=== PATIENT | female | born 1995 | race African-American/Black ===

== ENCOUNTER 2017-08-23 21:53 | Emergency (ER) | payer MEDICAID ==
[~2017-08-23] VITALS: Ht 162.6 cm; Wt 77.0 kg
[~2017-08-23 21:53] MED LIST: DEPO INJECTION; IBUPROFEN; TRAMADOL
[2017-08-23 23:38] LABS: CLARITY URINE CLOUDY (CLEAR); COLOR URINE RED (YELLOW); KETONES URINE NEGATIVE (NEGATIVE); LEUKOCYTE ESTERASE URINE 2+ (NEGATIVE); NITRITE URINE NEGATIVE (NEGATIVE); OCCULT BLOOD URINE 3+ (NEGATIVE); PROTEIN URINE 1+ (NEGATIVE); UROBILINOGEN URINE 0.2 E.U./dL (0.2-1.0)
[2017-08-24 00:25] LABS: BASOPHILS % 0.5 % (0.0-2.0); EOSINOPHILS % 6.1 % (0.0-5.0); HEMATOCRIT. 32.4 % (36.0-48.0); HEMOGLOBIN. 10.5 g/dL (12.0-16.0); LYMPHOCYTES % 18.1 % (20.0-50.0); MEAN CORPUSCULAR HEMOGLOBIN 25.1 pg (28.0-32.0); MEAN CORPUSCULAR VOLUME 77.4 fL (81.0-99.0); MEAN PLATELET VOLUME 9.7 fl (7.4-10.4); MONOCYTES % 6.6 % (2.0-8.0); NEUTROPHILS % 68.7 % (40.0-76.0); PLATELET 248 x1000/uL (130-400); RED BLOOD CELL COUNT 4.19 mill/uL (4.2-5.4); RED CELL DISTRIBUTION WIDTH 17.7 % (11.6-14.6)
[2017-08-24 00:32] LABS: CHLORIDE 108 mEq/L (98-107)
[2017-08-24 00:35] LABS: PROTHROMBIN TIME 10.3 sec (9.4-11.6)
[2017-08-24 00:57] LABS: B-HCG QUANTITATIVE 12694 mIU/mL (<3)
[2017-08-24] MEDS ORDERED: NITROFURANTOIN 100MG M/M CAPSULE PO SCH (01:43)
[2017-08-24] MEDS ORDERED: HYDROCODONE/ACETAMINOPHEN 10/325MG TABLET PO ONE (02:00)
[2017-08-24 02:21] VITALS: BP 109/57
== END 2017-08-24 02:11 | disposition home or self-care (01) ==
LOC: ER 21:53
DX: O03.88 Urinary tract infection following complete or unspecified spontaneous abortion (principal); Z3A.01 Less than 8 weeks gestation of pregnancy
CPT/HCPCS: 36415; 76830; 76856; 80053; 81003; 84702; 85025; 85610; 86850; 86900; 99285

== ENCOUNTER 2017-12-11 20:41 | Emergency (ER) | payer MEDICAID ==
[~2017-12-11] VITALS: Ht 154.9 cm; Wt 73.0 kg
[2017-12-11 20:49] VITALS: BP 108/58
== END 2017-12-11 21:45 | disposition home or self-care (01) ==
LOC: ER 20:41
DX: Z53.21 Procedure and treatment not carried out due to patient leaving prior to being seen by health care provider (principal)

== ENCOUNTER 2018-01-18 12:50 | Emergency (ER) | payer MEDICAID ==
[~2018-01-18] VITALS: Ht 162.6 cm; Wt 73.0 kg
[2018-01-18] MEDS ORDERED: PREDNISONE 20MG TABLET PO ONE (15:45)
[2018-01-18 16:21] VITALS: BP 104/67
== END 2018-01-18 16:21 | disposition home or self-care (01) ==
LOC: ER 12:50
DX: T78.40XA Allergy, unspecified, initial encounter (principal)
CPT/HCPCS: 81025; 99283; J7512

== ENCOUNTER 2018-04-23 08:41 | Emergency (ER) | payer MEDICAID ==
[~2018-04-23] VITALS: Ht 162.6 cm; Wt 74.0 kg
[2018-04-23] MEDS ORDERED: ACETAMINOPHEN 325MG TABLET PO ONE (10:45)
[2018-04-23 13:10] VITALS: BP 108/72
== END 2018-04-23 13:14 | disposition home or self-care (01) ==
LOC: ER 09:03
DX: S63.91XA Sprain of unspecified part of right wrist and hand, initial encounter (principal); X58.XXXA Exposure to other specified factors, initial encounter; Y93.89 Activity, other specified; Y92.89 Other specified places as the place of occurrence of the external cause
CPT/HCPCS: 73130; 81025; 99283

== ENCOUNTER 2018-12-08 07:42 | Emergency (ER) | payer MEDICAID ==
[~2018-12-08] VITALS: Ht 162.6 cm; Wt 73.0 kg
[2018-12-08] MEDS ORDERED: MAGNESIUM/ALUMINUM HYDROXIDE/SIMETHICONE 30ML UDC PO STA (08:14)
[2018-12-08] MEDS ORDERED: DICYCLOMINE 10 MG/5 ML ORAL SYR PO STA (08:14)
[2018-12-08] MEDS ORDERED: FAMOTIDINE 20MG TABLET PO ONE (08:15)
[2018-12-08 09:02] LABS: BASOPHILS % 0.4 % (0.0-2.0); EOSINOPHILS % 9.9 % (0.0-5.0); HEMATOCRIT. 28.8 % (36.0-48.0); HEMOGLOBIN. 8.9 g/dL (12.0-16.0); LYMPHOCYTES % 15.5 % (20.0-50.0); MEAN CORPUSCULAR HEMOGLOBIN 20.3 pg (28.0-32.0); MEAN CORPUSCULAR VOLUME 65.8 fL (81.0-99.0); MEAN PLATELET VOLUME 9.6 fl (7.4-10.4); MONOCYTES % 6.2 % (2.0-8.0); PLATELET 308 x1000/uL (130-400); RED BLOOD CELL COUNT 4.37 mill/uL (4.2-5.4)
[2018-12-08 09:07] LABS: CHLORIDE 107 mEq/L (98-107)
[2018-12-08 09:12] LABS: CLARITY URINE CLOUDY (CLEAR); COLOR URINE YELLOW (YELLOW); KETONES URINE NEGATIVE (NEGATIVE); LEUKOCYTE ESTERASE URINE NEGATIVE (NEGATIVE); NITRITE URINE NEGATIVE (NEGATIVE); OCCULT BLOOD URINE NEGATIVE (NEGATIVE); PH URINE 5.5 (4.5-8.0); PROTEIN URINE NEGATIVE (NEGATIVE); SPECIFIC GRAVITY URINE 1.028 (1.005-1.030); UROBILINOGEN URINE 0.2 E.U./dL (0.2-1.0)
[2018-12-08 09:38] LABS: PLATELET ESTIMATE NORMAL
[2018-12-08 09:50] LABS: *AMPHETAMINES SCREEN URINE NEGATIVE (NEGATIVE); *BARBITURATES SCREEN URINE NEGATIVE (NEGATIVE); *BENZODIAZEPINES SCREEN URINE NEGATIVE (NEGATIVE); *COCAINE SCREEN URINE NEGATIVE (NEGATIVE)
[2018-12-08 09:51] LABS: CANNABINOID URINE SCREEN NEGATIVE (NEGATIVE); METHADONE URINE SCREEN NEGATIVE (NEGATIVE); OPIATES URINE SCREEN NEGATIVE (NEGATIVE); PHENCYCLIDINE URINE SCREEN NEGATIVE (NEGATIVE)
[2018-12-08 10:00] VITALS: BP 116/69
== END 2018-12-08 10:18 | disposition home or self-care (01) ==
LOC: ER 07:42
DX: N39.0 Urinary tract infection, site not specified (principal); D50.9 Iron deficiency anemia, unspecified; R10.84 Generalized abdominal pain
CPT/HCPCS: 36415; 71045; 80305; 81003; 81025; 93005; 99284

== ENCOUNTER 2018-12-18 02:14 | Emergency (ER) | payer MEDICAID ==
[~2018-12-18] VITALS: Ht 167.6 cm; Wt 77.0 kg
[2018-12-18] MEDS ORDERED: ACETAMINOPHEN 325MG TABLET PO ONE (03:00)
[2018-12-18] MEDS ORDERED: IBUPROFEN 600MG TABLET PO ONE (03:00)
[2018-12-18] MEDS ORDERED: TETANUS, DIPHTHERIA, PERTUSSIS VAC/PF 0.5ML (>7YR OLD) IM ONE (03:00)
[2018-12-18 03:59] VITALS: BP 121/61
== END 2018-12-18 04:01 | disposition home or self-care (01) ==
LOC: ER 02:14
DX: M54.2 Cervicalgia (principal); Z79.899 Other long term (current) drug therapy
CPT/HCPCS: 81025; 90471; 90715; 99283

== ENCOUNTER 2019-01-04 14:21 | Emergency (ER) | payer MEDICAID ==
[~2019-01-04] VITALS: Ht 162.6 cm; Wt 80.0 kg
[2019-01-04 15:27] LABS: BASOPHILS % 0.9 % (0.0-2.0); EOSINOPHILS % 4.9 % (0.0-5.0); HEMATOCRIT. 33.7 % (36.0-48.0); HEMOGLOBIN. 10.3 g/dL (12.0-16.0); LYMPHOCYTES % 19.8 % (20.0-50.0); MEAN CORPUSCULAR HEMOGLOBIN 21.3 pg (28.0-32.0); MEAN CORPUSCULAR VOLUME 69.5 fL (81.0-99.0); MEAN PLATELET VOLUME 10.3 fl (7.4-10.4); MONOCYTES % 7.5 % (2.0-8.0); NEUTROPHILS % 66.9 % (40.0-76.0); PLATELET 335 x1000/uL (130-400); RED BLOOD CELL COUNT 4.86 mill/uL (4.2-5.4); RED CELL DISTRIBUTION WIDTH 23.2 % (11.6-14.6)
[2019-01-04 15:36] LABS: CHLORIDE 106 mEq/L (98-107)
[2019-01-04 15:52] LABS: PLATELET ESTIMATE NORMAL
[2019-01-04 16:02] LABS: B-HCG QUANTITATIVE 87755 mIU/mL (<3)
[2019-01-04] MEDS ORDERED: VISCOUS LIDOCAINE 2% 15 ML UDC PO STA (16:32)
[2019-01-04] MEDS ORDERED: DICYCLOMINE 10 MG/5 ML ORAL SYR PO STA (16:32)
[2019-01-04] MEDS ORDERED: MAGNESIUM/ALUMINUM HYDROXIDE/SIMETHICONE 30ML UDC PO STA (16:32)
[2019-01-04] MEDS ORDERED: ACETAMINOPHEN 325MG TABLET PO ONE (17:15)
[2019-01-04 17:21] LABS: CLARITY URINE CLOUDY (CLEAR); COLOR URINE YELLOW (YELLOW); KETONES URINE 1+ (NEGATIVE); LEUKOCYTE ESTERASE URINE 1+ (NEGATIVE); NITRITE URINE NEGATIVE (NEGATIVE); OCCULT BLOOD URINE NEGATIVE (NEGATIVE); PROTEIN URINE NEGATIVE (NEGATIVE); UROBILINOGEN URINE 0.2 E.U./dL (0.2-1.0)
[2019-01-04] MEDS ORDERED: NITROFURANTOIN 100MG M/M CAPSULE PO ONE (18:00)
[2019-01-04 18:38] VITALS: BP 129/74
== END 2019-01-04 18:58 | disposition home or self-care (01) ==
LOC: ER 14:21
DX: O23.11 Infections of bladder in pregnancy, first trimester (principal); Z3A.01 Less than 8 weeks gestation of pregnancy
CPT/HCPCS: 36415; 76801; 81003; 84702; 99284

== ENCOUNTER 2019-02-22 20:21 | Emergency (ER) | payer MEDICAID ==
[~2019-02-22] VITALS: Ht 162.6 cm; Wt 83.0 kg
[2019-02-23 00:48] LABS: CHLORIDE 106 mEq/L (98-107)
[2019-02-23 00:49] LABS: BASOPHILS % 0.5 % (0.0-2.0); HEMATOCRIT. 35.3 % (36.0-48.0); HEMOGLOBIN. 11.3 g/dL (12.0-16.0); LYMPHOCYTES % 17.3 % (20.0-50.0); MEAN CORPUSCULAR HEMOGLOBIN 24.2 pg (28.0-32.0); MEAN PLATELET VOLUME 10.6 fl (7.4-10.4); MONOCYTES % 6.4 % (2.0-8.0); NEUTROPHILS % 71.8 % (40.0-76.0); PLATELET 218 x1000/uL (130-400); RED BLOOD CELL COUNT 4.65 mill/uL (4.2-5.4); RED CELL DISTRIBUTION WIDTH 24.8 % (11.6-14.6)
[2019-02-23 01:11] LABS: B-HCG QUANTITATIVE 39294 mIU/mL (<3)
[2019-02-23 01:18] LABS: PLATELET ESTIMATE NORMAL
[2019-02-23 03:12] LABS: CLARITY URINE CLOUDY (CLEAR); COLOR URINE YELLOW (YELLOW); KETONES URINE 3+ (NEGATIVE); LEUKOCYTE ESTERASE URINE 1+ (NEGATIVE); NITRITE URINE NEGATIVE (NEGATIVE); OCCULT BLOOD URINE NEGATIVE (NEGATIVE); PH URINE 5.5 (4.5-8.0); PROTEIN URINE TRACE (NEGATIVE); SPECIFIC GRAVITY URINE 1.033 (1.005-1.030); UROBILINOGEN URINE 0.2 E.U./dL (0.2-1.0)
[2019-02-23] MEDS ORDERED: NITROFURANTOIN 100MG M/M CAPSULE PO SCH (04:15)
[2019-02-23 04:36] VITALS: BP 105/55
== END 2019-02-23 04:42 | disposition home or self-care (01) ==
LOC: ER 20:21
DX: O23.32 Infections of other parts of urinary tract in pregnancy, second trimester (principal); Z3A.14 14 weeks gestation of pregnancy
CPT/HCPCS: 36415; 76801; 81003; 81025; 84702; 86850; 86900; 99284

== ENCOUNTER 2019-05-21 16:27 | Observation (INO) | payer MEDICAID ==
[~2019-05-21] VITALS: Ht 162.6 cm; Wt 86.2 kg
[2019-05-21] MEDS ORDERED: LACTATED RINGERS 1,000 ML IV SCH (17:30)
[2019-05-21 17:58] LABS: CLARITY URINE CLEAR (CLEAR); COLOR URINE YELLOW (YELLOW); KETONES URINE NEGATIVE (NEGATIVE); LEUKOCYTE ESTERASE URINE 1+ (NEGATIVE); NITRITE URINE NEGATIVE (NEGATIVE); OCCULT BLOOD URINE NEGATIVE (NEGATIVE); PROTEIN URINE NEGATIVE (NEGATIVE); SPECIFIC GRAVITY URINE 1.025 (1.005-1.030)
== END 2019-05-21 19:00 | disposition home or self-care (01) ==
LOC: 8 EST LDRP 16:27
PROVIDERS: ADMIT Obstetrics & Gynecology; ATTEND Obstetrics & Gynecology
DX: O26.892 Other specified pregnancy related conditions, second trimester (principal); R10.9 Unspecified abdominal pain; Z3A.26 26 weeks gestation of pregnancy
CPT/HCPCS: 81003; 99281; G0378; 96360; 96361; J7120

== ENCOUNTER 2019-05-21 19:20 | Emergency (ER) | payer MEDICAID | END 2019-05-21 20:39 | disposition left against medical advice (07) | LOC: ER 19:20 | DX: R10.9 Unspecified abdominal pain (principal); Z53.21 Procedure and treatment not carried out due to patient leaving prior to being seen by health care provider ==

== ENCOUNTER 2019-07-06 10:59 | Observation (INO) | payer MEDICAID ==
[~2019-07-06] VITALS: Ht 170.2 cm; Wt 95.3 kg
[2019-07-06] MEDS ORDERED: PNV1TABL76 PO (11:19)
[2019-07-06 12:56] LABS: CLARITY URINE CLEAR (CLEAR); COLOR URINE YELLOW (YELLOW); KETONES URINE TRACE (NEGATIVE); LEUKOCYTE ESTERASE URINE 2+ (NEGATIVE); NITRITE URINE NEGATIVE (NEGATIVE); OCCULT BLOOD URINE NEGATIVE (NEGATIVE); PH URINE 6.5 (4.5-8.0); PROTEIN URINE TRACE (NEGATIVE); SPECIFIC GRAVITY URINE 1.025 (1.005-1.030)
[2019-07-06] MEDS ORDERED: DEXT 5%/LACTATED RINGERS 1,000 ML IV ONE (14:45)
[2019-07-06] MEDS ORDERED: CEFAZOLIN 2,000 MG in DEXT 5% WATER 100 ML IV SCH (15:00)
== END 2019-07-06 16:10 | disposition home or self-care (01) ==
LOC: 8 EST LDRP 10:59
PROVIDERS: ADMIT Obstetrics & Gynecology; ATTEND Obstetrics & Gynecology
DX: O26.893 Other specified pregnancy related conditions, third trimester (principal); R10.30 Lower abdominal pain, unspecified; Z3A.33 33 weeks gestation of pregnancy
CPT/HCPCS: 76805; 76818; 81003; 96365; 99281; G0378; J0690; J7060; 96360; 96361

== ENCOUNTER 2019-07-23 18:12 | Observation (INO) | payer MEDICAID ==
[~2019-07-23] VITALS: Ht 162.6 cm; Wt 97.5 kg
[~2019-07-23 18:12] MED LIST changes: -DEPO INJECTION; -IBUPROFEN; +PNV1TABL76 PO; -TRAMADOL
[2019-07-23 19:34] LABS: CLARITY URINE CLEAR (CLEAR); COLOR URINE YELLOW (YELLOW); KETONES URINE NEGATIVE (NEGATIVE); LEUKOCYTE ESTERASE URINE 2+ (NEGATIVE); NITRITE URINE NEGATIVE (NEGATIVE); OCCULT BLOOD URINE NEGATIVE (NEGATIVE); PROTEIN URINE NEGATIVE (NEGATIVE); SPECIFIC GRAVITY URINE 1.015 (1.005-1.030); UROBILINOGEN URINE 0.2 E.U./dL (0.2-1.0)
[2019-07-23] MEDS ORDERED: DEXT 5%/LACTATED RINGERS 1,000 ML IV ONE (20:00)
[2019-07-23] MEDS ORDERED: NITR-87 MT (20:06)
[2019-07-23] MEDS ORDERED: CEFAZOLIN 2,000 MG in DEXT 5% WATER 100 ML IV NR (20:30)
== END 2019-07-23 21:44 | disposition home or self-care (01) ==
LOC: 8 EST LDRP 18:12
PROVIDERS: ADMIT Obstetrics & Gynecology; ATTEND Obstetrics & Gynecology
DX: O26.893 Other specified pregnancy related conditions, third trimester (principal); R10.9 Unspecified abdominal pain; O99.89 Other specified diseases and conditions complicating pregnancy, childbirth and the puerperium; M54.9 Dorsalgia, unspecified; Z3A.35 35 weeks gestation of pregnancy
CPT/HCPCS: 81003; 96365; 99281; G0378; J0690; J7060; 96360; 96361

== ENCOUNTER 2019-07-29 09:50 | Observation (INO) | payer MEDICAID ==
[~2019-07-29] VITALS: Ht 162.6 cm; Wt 97.5 kg
[~2019-07-29 09:50] MED LIST changes: +NITR-87 MT
[2019-07-29 10:39] LABS: CLARITY URINE CLOUDY (CLEAR); COLOR URINE YELLOW (YELLOW); KETONES URINE TRACE (NEGATIVE); LEUKOCYTE ESTERASE URINE 3+ (NEGATIVE); NITRITE URINE NEGATIVE (NEGATIVE); OCCULT BLOOD URINE NEGATIVE (NEGATIVE); PH URINE 6.5 (4.5-8.0); PROTEIN URINE TRACE (NEGATIVE); SPECIFIC GRAVITY URINE 1.022 (1.005-1.030); UROBILINOGEN URINE 0.2 E.U./dL (0.2-1.0)
[2019-07-29] MEDS: LACTATED RINGERS 1,000 ML IV SCH ×2 (11:25→11:26)
[2019-07-29] MEDS ORDERED: NITROFURANTOIN 100MG M/M CAPSULE PO NR (12:15)
== END 2019-07-29 14:30 | disposition home or self-care (01) ==
LOC: 8 EST LDRP 09:50
PROVIDERS: ADMIT Obstetrics & Gynecology; ATTEND Obstetrics & Gynecology
DX: O62.9 Abnormality of forces of labor, unspecified (principal); O26.893 Other specified pregnancy related conditions, third trimester; R10.30 Lower abdominal pain, unspecified; O99.89 Other specified diseases and conditions complicating pregnancy, childbirth and the puerperium; M54.9 Dorsalgia, unspecified; Z3A.36 36 weeks gestation of pregnancy
CPT/HCPCS: 81003; 87086; G0378; 87077; 87186; 99281

== ENCOUNTER 2019-08-06 10:25 | Observation (INO) | payer MEDICAID ==
[~2019-08-06] VITALS: Ht 162.6 cm; Wt 99.8 kg
[~2019-08-06 10:25] MED LIST changes: -NITR-87 MT
== END 2019-08-06 11:59 | disposition home or self-care (01) ==
LOC: 8 EST LDRP 10:25
PROVIDERS: ADMIT Obstetrics & Gynecology; ATTEND Obstetrics & Gynecology
DX: O46.93 Antepartum hemorrhage, unspecified, third trimester (principal); O62.9 Abnormality of forces of labor, unspecified; Z3A.37 37 weeks gestation of pregnancy
CPT/HCPCS: 99281; G0378

== ENCOUNTER 2019-08-09 23:55 | Inpatient (IN) | payer MEDICAID ==
[~2019-08-09] VITALS: Ht 162.6 cm; Wt 99.8 kg
[2019-08-10] MEDS ORDERED: DEXT 5%/LR + PITOCIN 20UNITS/L 1,000 ML IV SCH (02:12)
[2019-08-10] MEDS ORDERED: LIDOCAINE HCL 1% 20ML VIAL (Pyxis) INJ INFIL SCH (02:15)
[2019-08-10] MEDS ORDERED: NALOXONE HCL 0.4 MG/ML 1ML VIAL IM PRN (02:15)
[2019-08-10] MEDS ORDERED: METHYLERGONOVINE MALEATE 0.2 MG/ML IM PRN (02:15)
[2019-08-10] MEDS ORDERED: BUTORPHANOL TARTRATE 2 MG/ML VIAL IV PRN (02:15)
[2019-08-10 02:56] LABS: INR 0.8; PARTIAL THROMBOPLASTIN TIME 21.8 sec (23.4-31.0); PROTHROMBIN TIME 9.2 sec (9.6-11.0)
[2019-08-10] MEDS ORDERED: ROPIVACAINE HCL/PF 0.2% (2MG/ML) EPID 200ML EPI ONE (03:15)
[2019-08-10] MEDS ORDERED: FENTANYL CITRATE/PF 50MCG/ML 2ML VIAL ONE ×2 (03:22→04:11)
[2019-08-10] MEDS ORDERED: BUPIVACAINE HCL/PF 0.25% (2.5MG/ML) 10ML ONE (03:23)
[2019-08-10] MEDS: LACTATED RINGERS 1,000 ML IV SCH ×2 (03:33→04:13)
[2019-08-10 03:35] LABS: BASOPHILS % 0.5 % (0.0-2.0); EOSINOPHILS % 2.2 % (0.0-5.0); HEMATOCRIT. 39.5 % (36.0-48.0); HEMOGLOBIN. 13.2 g/dL (12.0-16.0); LYMPHOCYTES % 18.4 % (20.0-50.0); MEAN CORPUSCULAR VOLUME 86.9 fL (81.0-99.0); MONOCYTES % 6.2 % (2.0-8.0); NEUTROPHILS % 72.7 % (40.0-76.0); RED BLOOD CELL COUNT 4.54 mill/uL (4.2-5.4); RED CELL DISTRIBUTION WIDTH 15.3 % (11.6-14.6)
[2019-08-10 04:03] LABS: PLATELET 167 x1000/uL (130-400)
[2019-08-10 04:04] LABS: MEAN PLATELET VOLUME 11.6 fl (7.4-10.4)
[2019-08-10] MEDS ORDERED: MORPHINE SULFATE/PF 1MG/ML 10ML AMP ONE (04:11)
[2019-08-10 04:17] LABS: HEPATITIS B SURFACE ANTIGEN NEGATIVE
[2019-08-10 04:36] LABS: CLARITY URINE CLEAR (CLEAR); COLOR URINE YELLOW (YELLOW); KETONES URINE TRACE (NEGATIVE); LEUKOCYTE ESTERASE URINE TRACE (NEGATIVE); NITRITE URINE NEGATIVE (NEGATIVE); OCCULT BLOOD URINE 1+ (NEGATIVE); PH URINE 5.5 (4.5-8.0); PROTEIN URINE TRACE (NEGATIVE); SPECIFIC GRAVITY URINE 1.027 (1.005-1.030)
[2019-08-10 05:00] LABS: *AMPHETAMINES SCREEN URINE NEGATIVE (NEGATIVE); *BARBITURATES SCREEN URINE NEGATIVE (NEGATIVE); *BENZODIAZEPINES SCREEN URINE NEGATIVE (NEGATIVE); *COCAINE SCREEN URINE NEGATIVE (NEGATIVE); METHADONE URINE SCREEN NEGATIVE (NEGATIVE)
[2019-08-10 05:01] LABS: CANNABINOID URINE SCREEN NEGATIVE (NEGATIVE); OPIATES URINE SCREEN NEGATIVE (NEGATIVE); PHENCYCLIDINE URINE SCREEN NEGATIVE (NEGATIVE)
[2019-08-10] MEDS: DEXT 5%/LR + PITOCIN 20UNITS/L 1,000 ML IV SCH ×2 (10:40→12:05)
[2019-08-10] MEDS ORDERED: IBUPROFEN 400MG TABLET PO PRN (11:00)
[2019-08-10] MEDS ORDERED: RHO(D) IMMUNE GLOBULIN 300 MCG/SYR IM PRN (11:00)
[2019-08-10] MEDS ORDERED: BENZOCAINE/LANOLIN/ALOE VERA SPRAY TOP PRN (11:00)
[2019-08-10] MEDS ORDERED: IBUPROFEN 800MG TABLET PO PRN (11:00)
[2019-08-10 13:00] VITALS: BP 141/69
[2019-08-10 14:00] VITALS: BP 136/80
[2019-08-10 19:30] VITALS: BP 121/73
[2019-08-11 04:00] VITALS: BP 116/67
[2019-08-11 06:11] LABS: BASOPHILS % 0.1 % (0.0-2.0); EOSINOPHILS % 0.8 % (0.0-5.0); HEMOGLOBIN. 12.2 g/dL (12.0-16.0); LYMPHOCYTES % 10.7 % (20.0-50.0); MEAN CORPUSCULAR HEMOGLOBIN 28.7 pg (28.0-32.0); MEAN CORPUSCULAR VOLUME 87.2 fL (81.0-99.0); MONOCYTES % 6.4 % (2.0-8.0); PLATELET 148 x1000/uL (130-400); RED BLOOD CELL COUNT 4.24 mill/uL (4.2-5.4); RED CELL DISTRIBUTION WIDTH 14.7 % (11.6-14.6)
[2019-08-11 08:00] VITALS: BP 103/66
[2019-08-11 16:00] VITALS: BP 110/61
== END 2019-08-11 17:45 | disposition home or self-care (01) | DRG 560 ==
LOC: OBSVTOIN 23:55 → INTOOBSV 23:55 → 8 EST LDRP 23:55 → 8EST 08-10 13:15
PROVIDERS: ADMIT Obstetrics & Gynecology; ATTEND Obstetrics & Gynecology
PROC: 10E0XZZ Delivery of Products of Conception, External Approach (ICD-10-PCS; principal; 2019-08-10)
PROC: 0KQM0ZZ Repair Perineum Muscle, Open Approach (ICD-10-PCS; 2019-08-10)
PROC: 3E0R3BZ Introduction of Anesthetic Agent into Spinal Canal, Percutaneous Approach (ICD-10-PCS; 2019-08-10)
PROC: 00HU33Z Insertion of Infusion Device into Spinal Canal, Percutaneous Approach (ICD-10-PCS; 2019-08-10)
DX: O70.1 Second degree perineal laceration during delivery (principal); Z37.0 Single live birth; Z3A.38 38 weeks gestation of pregnancy
CPT/HCPCS: 36415; 80305; 81003; 85025; 86592; 86703; 86762; 86850; 86900; 87340; 99281; J2274; J2590; J2795; J3010; J3490

== ENCOUNTER 2020-02-04 10:52 | Emergency (ER) | payer MEDICAID ==
[2020-02-04 11:12] VITALS: BP 129/67
[2020-02-04] MEDS ORDERED: CEFTRIAXONE SODIUM 250 MG/VIAL IM ONE (12:15)
[2020-02-04] MEDS ORDERED: AZITHROMYCIN 500 MG TABLET PO ONE (12:15)
[2020-02-04 12:43] LABS: HCG SCREEN NEGATIVE
[2020-02-04 13:39] LABS: CLARITY URINE CLOUDY (CLEAR); COLOR URINE YELLOW (YELLOW); KETONES URINE NEGATIVE (NEGATIVE); LEUKOCYTE ESTERASE URINE 2+ (NEGATIVE); NITRITE URINE NEGATIVE (NEGATIVE); OCCULT BLOOD URINE NEGATIVE (NEGATIVE); PROTEIN URINE NEGATIVE (NEGATIVE); SPECIFIC GRAVITY URINE 1.027 (1.005-1.030); UROBILINOGEN URINE 0.2 E.U./dL (0.2-1.0)
[2020-02-06 07:06] LABS: NEISSERIA GONORRHOEAE NAA Negative (Negative)
== END 2020-02-04 14:21 | disposition home or self-care (01) ==
LOC: ER 10:52
DX: A59.01 Trichomonal vulvovaginitis (principal)
CPT/HCPCS: 81003; 84703; 87086; 87210; 87491; 87591; 96372; 99283; J0696

== ENCOUNTER 2020-03-08 07:43 | Emergency (ER) | payer MEDICAID ==
[~2020-03-08] VITALS: Ht 162.6 cm; Wt 83.0 kg
[2020-03-08 07:45] VITALS: BP 111/72
[2020-03-08] MEDS ORDERED: KETOROLAC 30MG/ML VIAL IM ONE (08:30)
== END 2020-03-08 11:14 | disposition home or self-care (01) ==
LOC: ER 07:43
DX: S46.912A Strain of unspecified muscle, fascia and tendon at shoulder and upper arm level, left arm, initial encounter (principal); X58.XXXA Exposure to other specified factors, initial encounter; Y93.89 Activity, other specified; Y92.89 Other specified places as the place of occurrence of the external cause; R03.0 Elevated blood-pressure reading, without diagnosis of hypertension
CPT/HCPCS: 73030; 81025; 96372; 99283; J1885

== ENCOUNTER 2020-06-15 01:54 | Emergency (ER) | payer MEDICAID ==
[~2020-06-15] VITALS: Ht 162.6 cm; Wt 91.0 kg
[2020-06-15] MEDS ORDERED: ACETAMINOPHEN 325MG TABLET PO ONE (02:30)
[2020-06-15] MEDS ORDERED: ACET-2708 MT (03:55)
[2020-06-15 04:00] VITALS: BP 108/72
== END 2020-06-15 04:00 | disposition home or self-care (01) ==
LOC: ER 01:54
DX: S60.221A Contusion of right hand, initial encounter (principal); X58.XXXA Exposure to other specified factors, initial encounter; Y93.89 Activity, other specified; Y92.89 Other specified places as the place of occurrence of the external cause; R03.0 Elevated blood-pressure reading, without diagnosis of hypertension
CPT/HCPCS: 73130; 99283

== ENCOUNTER 2020-08-29 18:08 | Emergency (ER) | payer MEDICAID ==
[~2020-08-29] VITALS: Ht 162.6 cm; Wt 72.0 kg
[~2020-08-29 18:08] MED LIST changes: +ACET-2708 MT; -PNV1TABL76 PO
[2020-08-29 18:11] VITALS: BP 115/40
== END 2020-08-29 21:26 | disposition left against medical advice (07) ==
LOC: ER 18:08
DX: R10.9 Unspecified abdominal pain (principal); Z53.21 Procedure and treatment not carried out due to patient leaving prior to being seen by health care provider

== ENCOUNTER 2020-08-30 06:43 | Emergency (ER) | payer MEDICAID, OTHER ==
[~2020-08-30] VITALS: Ht 162.6 cm; Wt 87.7 kg
[2020-08-30] MEDS ORDERED: ACETAMINOPHEN 325MG TABLET PO STA (07:43)
[2020-08-30 08:10] LABS: BASOPHILS % 0.8 % (0.0-2.0); EOSINOPHILS % 5.6 % (0.0-5.0); HEMATOCRIT. 36.9 % (36.0-48.0); LYMPHOCYTES % 18.9 % (20.0-50.0); MEAN CORPUSCULAR VOLUME 80.2 fL (81.0-99.0); MONOCYTES % 4.5 % (2.0-8.0); NEUTROPHILS % 70.2 % (40.0-76.0); PLATELET 312 x1000/uL (130-400); RED CELL DISTRIBUTION WIDTH 15.3 % (11.6-14.6)
[2020-08-30 08:19] LABS: CHLORIDE 107 mEq/L (98-107)
[2020-08-30 08:20] LABS: CLARITY URINE CLEAR (CLEAR); COLOR URINE YELLOW (YELLOW); KETONES URINE NEGATIVE (NEGATIVE); LEUKOCYTE ESTERASE URINE NEGATIVE (NEGATIVE); NITRITE URINE NEGATIVE (NEGATIVE); OCCULT BLOOD URINE NEGATIVE (NEGATIVE); PROTEIN URINE NEGATIVE (NEGATIVE); SPECIFIC GRAVITY URINE 1.033 (1.005-1.030)
[2020-08-30 08:21] LABS: INR 0.9; PROTHROMBIN TIME 10.2 sec (9.6-11.0)
[2020-08-30 08:25] LABS: HCG SCREEN NEGATIVE
[2020-08-30 10:57] VITALS: BP 115/76
== END 2020-08-30 11:00 | disposition home or self-care (01) ==
LOC: ER 06:43
DX: R10.2 Pelvic and perineal pain (principal); N83.201 Unspecified ovarian cyst, right side
CPT/HCPCS: 36415; 76830; 76856; 80053; 81003; 81025; 84703; 85025; 99284

== ENCOUNTER 2022-09-10 18:33 | Emergency (ER) | payer MEDICAID, OTHER ==
[~2022-09-10] VITALS: Ht 162.6 cm; Wt 91.0 kg
[2022-09-10 18:49] VITALS: BP 118/62; O2SAT 100
[2022-09-10 19:21] LABS: BASOPHILS % 1.3 % (0.0-2.0); EOSINOPHILS % 0.5 % (0.0-5.0); HEMATOCRIT. 31.7 % (36.0-48.0); HEMOGLOBIN. 9.8 g/dL (12.0-16.0); LYMPHOCYTES % 15.9 % (20.0-50.0); MEAN CORPUSCULAR HEMOGLOBIN 20.9 pg (28.0-32.0); MEAN CORPUSCULAR VOLUME 67.5 fL (81.0-99.0); MEAN PLATELET VOLUME 10.1 fl (7.4-10.4); MONOCYTES % 6.3 % (2.0-8.0); PLATELET 417 x1000/uL (130-400); RED CELL DISTRIBUTION WIDTH 18.5 % (11.6-14.6)
[2022-09-10 19:28] LABS: CHLORIDE 111 mEq/L (98-107)
[2022-09-10 21:59] LABS: PLATELET ESTIMATE SLIGHTLY INCREASED
[2022-09-10] MEDS ORDERED: ONDANSETRON HCL 4MG/2ML INJ IV STA (23:09)
[2022-09-10] MEDS ORDERED: SODIUM CHLORIDE 0.9% 1,000 ML IV ONE (23:15)
[2022-09-10] MEDS ORDERED: KETOROLAC 15MG/ML VIAL IV ONE (23:15)
[2022-09-10 23:35] LABS: CLARITY URINE CLOUDY (CLEAR); COLOR URINE YELLOW (YELLOW); KETONES URINE 4+ (NEGATIVE); LEUKOCYTE ESTERASE URINE 1+ (NEGATIVE); NITRITE URINE NEGATIVE (NEGATIVE); OCCULT BLOOD URINE 3+ (NEGATIVE); PH URINE 5.5 (4.5-8.0); PROTEIN URINE 1+ (NEGATIVE); SPECIFIC GRAVITY URINE 1.029 (1.005-1.030)
[2022-09-11] MEDS ORDERED: NITROFURANTOIN 100MG M/M CAPSULE PO ONE (01:00)
[2022-09-11] MEDS ORDERED: NITR-87 MT (02:27)
[2022-09-11] MEDS ORDERED: FERR324T4 MT (02:27)
[2022-09-11 02:39] VITALS: PULSE 111; RESP 24; TEMP 97.1
== END 2022-09-11 02:40 | disposition home or self-care (01) ==
LOC: ER 18:33
DX: R55 Syncope and collapse (principal); D50.9 Iron deficiency anemia, unspecified; N39.0 Urinary tract infection, site not specified
CPT/HCPCS: 99285; 96374; 71045; 96361; 96375; 80053; 81003; 81025; 85025; 85379; 84484; 93005; 36415; J1885; J2405; J7030